=== PATIENT | male | born 1995 | race Caucasian/White ===

== ENCOUNTER → 2016-11-18 | Outpatient (CLI) | payer OTHER ==
--- NOTE | 2016-11-18 19:16 | DX ---
PA and Lateral Chest History: Anterior chest pain for several days in a 21-year-old male; no prior studies are available f or comparison. Findings: The heart and mediastinum are normal. Pulmonary vascularity is normal. The lungs are clear. There is no pleural fluid. A pneumothorax is not identified. Impression: No significant radiographic abnormality. Specifically, a source for chest pain is not ramirez ntified.
== END ==
LOC: BMCIMAGING 18:38
PROVIDERS: ATTEND Family Medicine
DX: R07.89 Other chest pain (principal)